=== PATIENT | female | born 1930 | race Asian ===

== ENCOUNTER 2018-01-20 14:01 | Inpatient (IN) | payer MEDICARE ==
[~2018-01-20] VITALS: Ht 142.2 cm; Wt 38.6 kg
[~2018-01-20 14:01] MED LIST: ASPI-515 PO; GINK30CA2 PO; LEVO75TA5 PO; LISI-167 PO; OMEP-110 PO; POTA8TAB PO
[2018-01-20] MEDS ORDERED: SODIUM CHLORIDE FLUSH 10ML SYR IVF ONE (14:30)
[2018-01-20] MEDS ORDERED: LISI-167 PO (14:45)
[2018-01-20] MEDS ORDERED: POTA8TAB PO (14:46)
[2018-01-20] MEDS ORDERED: NITR100C56 PO (14:48)
[2018-01-20] MEDS ORDERED: LEVO25TA2 PO (14:48)
[2018-01-20 14:53] LABS: BASOPHILS % (AUTO) 0 % (0-1); EOSINOPHILS # (AUTO) 0.18 x10^3/uL (0-0.4); EOSINOPHILS % (AUTO) 1 % (1-7); LYMPHOCYTES # (AUTO) 0.34 x10^3/uL (1-3.4); LYMPHOCYTES % (AUTO) 3 % (22-44); MD NO; MEAN CORPUSCULAR HEMOGLOBIN 30.6 pg (27.0-34.8); MEAN CORPUSCULAR HGB CONC 33.2 g/dL (32.4-35.8); MEAN CORPUSCULAR VOLUME 92.1 fL (80-100); MEAN PLATELET VOLUME 8.3 fL (7.4-10.4); MONOCYTES # (AUTO) 0.47 x10^3/uL (0.2-0.8); MONOCYTES % (AUTO) 4 % (2-9); NEUTROPHILS # (AUTO) 12.34 x10^3/uL (1.8-6.8); NEUTROPHILS % (AUTO) 93 % (42-75); PLATELET COUNT 293 x10^3/uL (130-400); RED BLOOD COUNT 4.74 x10^6/uL (3.82-5.3); RED CELL DISTRIBUTION WIDTH 14.8 % (9.6-15.2)
[2018-01-20] MEDS ORDERED: CEFTRIAXONE PMX 1GM/50ML 50 ML IV ONE (15:00)
[2018-01-20 15:01] LABS: ALANINE AMINOTRANSFERASE 16 U/L (12-78); ALBUMIN 3.1 g/dL (3.4-5.0); ANION GAP 6 mmol/L (5-15); CALCIUM 8.3 mg/dL (8.5-10.1); CHLORIDE 106 mmol/L (98-107); CREATININE 0.92 mg/dL (0.55-1.02)
[2018-01-20 15:05] LABS: ALKALINE PHOSPHATASE 71 U/L (45-117); BILIRUBIN,TOTAL 0.7 mg/dL (0.2-1.0); TOTAL PROTEIN 6.2 g/dL (6.4-8.2); TROPONIN I < 0.015 ng/mL (0.000-0.045)
[2018-01-20] MEDS ORDERED: OMNIPAQUE 350 MG/ML, 75ML BOTTLE ONE (15:23)
[2018-01-20 15:35] LABS: THYROID STIMULATING HORMONE < 0.005 mIU/L (0.358-3.740)
[2018-01-20] MEDS ORDERED: DIPHENHYDRAMINE 50 MG/ML, 1ML ONE (15:54)
[2018-01-20] MEDS ORDERED: DIPHENHYDRAMINE 50 MG/ML, 1ML IVPush ONE (16:00)
[2018-01-20] MEDS ORDERED: CEFTRIAXONE PMX 1GM/50ML 50 ML ONE (16:07)
[2018-01-20] MEDS ORDERED: ONDANSETRON 2MG/ML, 2ML IVPush PRN (17:00)
[2018-01-20] MEDS ORDERED: ACETAMINOPHEN 325 MG TABLET PO PRN (17:00)
[2018-01-20 17:42] LABS: MICROSCOPIC NOT IND
[2018-01-20 17:47] LABS: CULTURE INDICATED? ORDERED BY PHYSICIAN
[2018-01-20] MEDS: OMEPRAZOLE 20 MG CAPSULE.DR PO SCH (18:12)
[2018-01-20 18:19] VITALS: BP 143/83
[2018-01-20] MEDS: CARVEDILOL 6.25 MG TABLET PO SCH (19:11)
[2018-01-20] MEDS: HEPARIN 5,000 UNITS/ML, 1ML SQ SCH (19:11)
[2018-01-20] MEDS ORDERED: TEMAZEPAM 15 MG CAPSULE PO PRN (19:30)
[2018-01-20 19:34] VITALS: BP 131/82
[2018-01-20] MEDS: POTASSIUM CHLORIDE 8 MEQ TABLET.ER PO SCH (21:21)
[2018-01-20] MEDS: LACTOBACILLUS CHEW TABLET PO SCH (21:21)
[2018-01-20] MEDS: TEMAZEPAM 15 MG CAPSULE PO PRN (21:22)
[2018-01-21] VITALS (8 sets, daily range): BP systolic 95–154; BP diastolic 57–83
[2018-01-21 05:08] LABS: BASOPHILS # (AUTO) 0.01 x10^3/uL (0-0.1); BASOPHILS % (AUTO) 0 % (0-1); EOSINOPHILS # (AUTO) 0.34 x10^3/uL (0-0.4); EOSINOPHILS % (AUTO) 5 % (1-7); LYMPHOCYTES # (AUTO) 0.78 x10^3/uL (1-3.4); LYMPHOCYTES % (AUTO) 11 % (22-44); MD NO; MEAN CORPUSCULAR HEMOGLOBIN 30.4 pg (27.0-34.8); MEAN CORPUSCULAR HGB CONC 33.1 g/dL (32.4-35.8); MEAN PLATELET VOLUME 8.3 fL (7.4-10.4); MONOCYTES # (AUTO) 0.52 x10^3/uL (0.2-0.8); MONOCYTES % (AUTO) 8 % (2-9); NEUTROPHILS # (AUTO) 5.26 x10^3/uL (1.8-6.8); NEUTROPHILS % (AUTO) 76 % (42-75); PLATELET COUNT 245 x10^3/uL (130-400); RED BLOOD COUNT 4.07 x10^6/uL (3.82-5.3); RED CELL DISTRIBUTION WIDTH 14.9 % (9.6-15.2)
[2018-01-21 05:12] LABS: ANION GAP 9 mmol/L (5-15); CALCIUM 7.9 mg/dL (8.5-10.1); CHLORIDE 108 mmol/L (98-107); CREATININE 1.19 mg/dL (0.55-1.02)
[2018-01-21] MEDS: HEPARIN 5,000 UNITS/ML, 1ML SQ SCH ×2 (05:34→17:00)
[2018-01-21] MEDS: LEVOTHYROXINE 75 MCG TABLET PO SCH (05:34)
[2018-01-21] MEDS: CARVEDILOL 6.25 MG TABLET PO SCH ×2 (05:35→17:15)
[2018-01-21] MEDS ORDERED: SODIUM CHLORIDE 0.9% 1,000 ML IV SCH (07:30)
[2018-01-21] MEDS: LACTOBACILLUS CHEW TABLET PO SCH ×3 (08:16→20:10)
[2018-01-21] MEDS: POTASSIUM CHLORIDE 8 MEQ TABLET.ER PO SCH ×2 (08:16→20:10)
[2018-01-21] MEDS: LISINOPRIL 5 MG TABLET PO SCH ×3 (08:16→13:51)
[2018-01-21] MEDS: OMEPRAZOLE 20 MG CAPSULE.DR PO SCH ×2 (08:16→17:16)
[2018-01-21] MEDS ORDERED: CARV6.2512 PO (15:55)
[2018-01-21] MEDS ORDERED: CEFD300C37 PO (16:03)
[2018-01-21] MEDS: CEFTRIAXONE 1,000 MG in SODIUM CHLORIDE 0.9% 50 ML IV SCH (17:16)
[2018-01-21] MEDS ORDERED: LISINOPRIL 5 MG TABLET PO ONE (17:30)
[2018-01-21] MEDS: TEMAZEPAM 15 MG CAPSULE PO PRN (23:34)
[2018-01-22] VITALS (10 sets, daily range): BP systolic 98–184; BP diastolic 56–90
[2018-01-22] MEDS: LEVOTHYROXINE 75 MCG TABLET PO SCH (05:31)
[2018-01-22] MEDS: CARVEDILOL 6.25 MG TABLET PO SCH (05:31)
[2018-01-22] MEDS: HEPARIN 5,000 UNITS/ML, 1ML SQ SCH ×2 (05:32→18:00)
[2018-01-22] MEDS ORDERED: CARVEDILOL 6.25 MG TABLET PO ONE (08:00)
[2018-01-22] MEDS: LACTOBACILLUS CHEW TABLET PO SCH ×3 (08:49→20:16)
[2018-01-22] MEDS: POTASSIUM CHLORIDE 8 MEQ TABLET.ER PO SCH ×2 (08:49→20:15)
[2018-01-22] MEDS: OMEPRAZOLE 20 MG CAPSULE.DR PO SCH ×2 (08:50→17:59)
[2018-01-22] MEDS: LISINOPRIL 20 MG TABLET PO SCH ×2 (08:55→20:17)
[2018-01-22] MEDS ORDERED: hydrALAzine 20 MG/ML, 1ML IV ONE (14:00)
[2018-01-22] MEDS ORDERED: hydrALAzine 20 MG/ML, 1ML IV PRN (14:30)
[2018-01-22] MEDS: CEFTRIAXONE 1,000 MG in SODIUM CHLORIDE 0.9% 50 ML IV SCH (18:00)
[2018-01-22] MEDS: CARVEDILOL 12.5 MG TABLET PO SCH (18:00)
[2018-01-22] MEDS: TEMAZEPAM 15 MG CAPSULE PO PRN (20:16)
[2018-01-23 00:13] VITALS: BP 118/68
[2018-01-23 03:07] VITALS: BP 157/80
[2018-01-23 05:32] LABS: BASOPHILS # (AUTO) 0.02 x10^3/uL (0-0.1); BASOPHILS % (AUTO) 0 % (0-1); EOSINOPHILS # (AUTO) 0.33 x10^3/uL (0-0.4); EOSINOPHILS % (AUTO) 6 % (1-7); LYMPHOCYTES # (AUTO) 1.74 x10^3/uL (1-3.4); LYMPHOCYTES % (AUTO) 29 % (22-44); MD NO; MEAN CORPUSCULAR HEMOGLOBIN 30.6 pg (27.0-34.8); MEAN CORPUSCULAR HGB CONC 33.2 g/dL (32.4-35.8); MEAN CORPUSCULAR VOLUME 92.3 fL (80-100); MEAN PLATELET VOLUME 8.5 fL (7.4-10.4); MONOCYTES # (AUTO) 0.66 x10^3/uL (0.2-0.8); MONOCYTES % (AUTO) 11 % (2-9); NEUTROPHILS # (AUTO) 3.32 x10^3/uL (1.8-6.8); NEUTROPHILS % (AUTO) 55 % (42-75); PLATELET COUNT 290 x10^3/uL (130-400); RED BLOOD COUNT 3.97 x10^6/uL (3.82-5.3); RED CELL DISTRIBUTION WIDTH 14.9 % (9.6-15.2)
[2018-01-23 05:35] LABS: CHLORIDE 109 mmol/L (98-107)
[2018-01-23 05:43] LABS: ANION GAP 9 mmol/L (5-15); CALCIUM 8.2 mg/dL (8.5-10.1); CREATININE 1.02 mg/dL (0.55-1.02)
[2018-01-23 05:54] VITALS: BP 166/84
[2018-01-23] MEDS: HEPARIN 5,000 UNITS/ML, 1ML SQ SCH (05:57)
[2018-01-23] MEDS: LEVOTHYROXINE 75 MCG TABLET PO SCH (05:58)
[2018-01-23] MEDS: CARVEDILOL 12.5 MG TABLET PO SCH (05:58)
[2018-01-23] MEDS ORDERED: CEFD300C37 PO (07:14)
[2018-01-23] MEDS ORDERED: LISI-167 PO (07:14)
[2018-01-23] MEDS ORDERED: CARV6.2512 PO (07:14)
[2018-01-23] MEDS: OMEPRAZOLE 20 MG CAPSULE.DR PO SCH (07:55)
[2018-01-23 08:33] VITALS: BP 153/83
[2018-01-23] MEDS: LISINOPRIL 20 MG TABLET PO SCH (09:07)
[2018-01-23] MEDS: LACTOBACILLUS CHEW TABLET PO SCH (09:07)
[2018-01-23] MEDS: POTASSIUM CHLORIDE 8 MEQ TABLET.ER PO SCH (09:07)
[2018-01-23 09:26] VITALS: BP 167/82
== END 2018-01-23 10:29 | disposition home or self-care (01) | DRG 291 ==
LOC: ED 16:09 → EDIP 16:10 → ED 16:13 → 4NOR 17:56 → 3NE 18:02
PROVIDERS: ADMIT Hospitalist; ATTEND Hospitalist
DX: I11.0 Hypertensive heart disease with heart failure (principal); I71.01 Dissection of thoracic aorta; N17.9 Acute kidney failure, unspecified; J98.11 Atelectasis; N39.0 Urinary tract infection, site not specified; R65.10 Systemic inflammatory response syndrome (SIRS) of non-infectious origin without acute organ dysfunction; I50.33 Acute on chronic diastolic (congestive) heart failure; I10 Essential (primary) hypertension; F17.210 Nicotine dependence, cigarettes, uncomplicated; Z85.3 Personal history of malignant neoplasm of breast; E03.9 Hypothyroidism, unspecified; G47.00 Insomnia, unspecified; Z80.9 Family history of malignant neoplasm, unspecified
CPT/HCPCS: 36415; 71045; 71260; 80048; 80053; 81003; 83605; 83880; 84443; 84484; 85025; 87040; 87086; 93005; 96374; 96375; 99285; J0696; J1644; Q9967; J0360; J1200; J7030

== ENCOUNTER 2018-01-23 14:48 | Inpatient (IN) | payer MEDICARE ==
[~2018-01-23] VITALS: Ht 142.2 cm; Wt 34.1 kg
[~2018-01-23 14:48] MED LIST changes: +CARV6.2512 PO; +CEFD300C37 PO; +LEVO25TA2 PO; +NITR100C56 PO
[2018-01-23 15:34] LABS: BASOPHILS # (AUTO) 0.02 x10^3/uL (0-0.1); BASOPHILS % (AUTO) 0 % (0-1); EOSINOPHILS # (AUTO) 0.39 x10^3/uL (0-0.4); EOSINOPHILS % (AUTO) 6 % (1-7); LYMPHOCYTES # (AUTO) 1.63 x10^3/uL (1-3.4); LYMPHOCYTES % (AUTO) 24 % (22-44); MD NO; MEAN CORPUSCULAR HEMOGLOBIN 30.7 pg (27.0-34.8); MEAN CORPUSCULAR HGB CONC 33.6 g/dL (32.4-35.8); MEAN CORPUSCULAR VOLUME 91.3 fL (80-100); MONOCYTES # (AUTO) 0.44 x10^3/uL (0.2-0.8); MONOCYTES % (AUTO) 6 % (2-9); NEUTROPHILS % (AUTO) 64 % (42-75); PLATELET COUNT 323 x10^3/uL (130-400); RED BLOOD COUNT 4.16 x10^6/uL (3.82-5.3); RED CELL DISTRIBUTION WIDTH 14.4 % (9.6-15.2)
[2018-01-23 15:42] LABS: ANION GAP 8 mmol/L (5-15); CALCIUM 8.7 mg/dL (8.5-10.1); CHLORIDE 108 mmol/L (98-107); CREATININE 0.78 mg/dL (0.55-1.02)
[2018-01-23] MEDS ORDERED: ONDANSETRON 2MG/ML, 2ML IVPush PRN (17:30)
[2018-01-23] MEDS ORDERED: AMLODIPINE 5 MG TABLET PO ONE (17:30)
[2018-01-23] MEDS ORDERED: hydrALAzine 20 MG/ML, 1ML IVPush PRN (17:30)
[2018-01-23] MEDS ORDERED: ENALAPRILAT 1.25 MG/ML, 2ML IVPush PRN (17:30)
[2018-01-23] MEDS ORDERED: CARVEDILOL 12.5 MG TABLET PO SCH (18:00)
[2018-01-23 20:05] VITALS: BP 129/69
[2018-01-23] MEDS: OMEPRAZOLE 20 MG CAPSULE.DR PO SCH (20:39)
[2018-01-23] MEDS: CEFDINIR 300 MG CAPSULE PO SCH (20:39)
[2018-01-23] MEDS: POTASSIUM CHLORIDE 8 MEQ TABLET.ER PO SCH (20:39)
[2018-01-23] MEDS: LISINOPRIL 10 MG TABLET PO SCH (20:39)
[2018-01-23] MEDS: HEPARIN 5,000 UNITS/ML, 1ML SQ SCH (20:40)
[2018-01-24] VITALS (8 sets, daily range): BP systolic 85–165; BP diastolic 52–82
[2018-01-24] MEDS: TEMAZEPAM 15 MG CAPSULE PO PRN ×2 (00:35→22:44)
[2018-01-24] MEDS: HEPARIN 5,000 UNITS/ML, 1ML SQ SCH ×3 (04:48→22:03)
[2018-01-24 05:40] LABS: BASOPHILS # (AUTO) 0.01 x10^3/uL (0-0.1); BASOPHILS % (AUTO) 0 % (0-1); EOSINOPHILS # (AUTO) 0.49 x10^3/uL (0-0.4); EOSINOPHILS % (AUTO) 7 % (1-7); LYMPHOCYTES # (AUTO) 2.37 x10^3/uL (1-3.4); LYMPHOCYTES % (AUTO) 33 % (22-44); MD NO; MEAN CORPUSCULAR HEMOGLOBIN 30.8 pg (27.0-34.8); MEAN CORPUSCULAR HGB CONC 33.6 g/dL (32.4-35.8); MEAN CORPUSCULAR VOLUME 91.5 fL (80-100); MEAN PLATELET VOLUME 8.4 fL (7.4-10.4); MONOCYTES # (AUTO) 0.59 x10^3/uL (0.2-0.8); MONOCYTES % (AUTO) 8 % (2-9); NEUTROPHILS # (AUTO) 3.83 x10^3/uL (1.8-6.8); NEUTROPHILS % (AUTO) 53 % (42-75); PLATELET COUNT 281 x10^3/uL (130-400); RED BLOOD COUNT 3.82 x10^6/uL (3.82-5.3); RED CELL DISTRIBUTION WIDTH 14.5 % (9.6-15.2)
[2018-01-24 05:54] LABS: ANION GAP 8 mmol/L (5-15); CHLORIDE 108 mmol/L (98-107)
[2018-01-24 05:57] LABS: CALCIUM 8.5 mg/dL (8.5-10.1); CREATININE 0.81 mg/dL (0.55-1.02)
[2018-01-24] MEDS: CARVEDILOL 12.5 MG TABLET PO SCH ×2 (05:58→18:00)
[2018-01-24] MEDS: LEVOTHYROXINE 75 MCG TABLET PO SCH (05:59)
[2018-01-24] MEDS ORDERED: AMLODIPINE 5 MG TABLET PO SCH (09:00)
[2018-01-24] MEDS: OMEPRAZOLE 20 MG CAPSULE.DR PO SCH ×2 (09:28→21:00)
[2018-01-24] MEDS: POTASSIUM CHLORIDE 8 MEQ TABLET.ER PO SCH ×2 (09:28→21:00)
[2018-01-24] MEDS: LISINOPRIL 10 MG TABLET PO SCH ×2 (09:29→14:51)
[2018-01-24] MEDS ORDERED: hydrALAzine 20 MG/ML, 1ML IVPush PRN (13:30)
[2018-01-24] MEDS ORDERED: AMLODIPINE 5 MG TABLET PO ONE (13:30)
[2018-01-24] MEDS: CEFDINIR 300 MG CAPSULE PO SCH ×2 (13:42→23:43)
[2018-01-24] MEDS ORDERED: ENALAPRILAT 1.25 MG/ML, 2ML IVPush PRN (17:30)
[2018-01-25 02:13] VITALS: BP 113/59
[2018-01-25 05:29] VITALS: BP 124/75
[2018-01-25] MEDS: LEVOTHYROXINE 75 MCG TABLET PO SCH (05:38)
[2018-01-25] MEDS: HEPARIN 5,000 UNITS/ML, 1ML SQ SCH (05:38)
[2018-01-25 06:43] VITALS: BP 122/65
[2018-01-25] MEDS ORDERED: AMLO5TAB2 PO (08:06)
[2018-01-25] MEDS: CEFDINIR 300 MG CAPSULE PO SCH (08:41)
[2018-01-25] MEDS: CARVEDILOL 12.5 MG TABLET PO SCH (08:42)
[2018-01-25] MEDS: LISINOPRIL 10 MG TABLET PO SCH (08:42)
[2018-01-25] MEDS: OMEPRAZOLE 20 MG CAPSULE.DR PO SCH (08:42)
[2018-01-25] MEDS ORDERED: LISINOPRIL 10 MG TABLET PO SCH (09:00)
[2018-01-25] MEDS ORDERED: AMLODIPINE 5 MG TABLET PO SCH (09:00)
== END 2018-01-25 10:34 | disposition home or self-care (01) | DRG 304 ==
LOC: ED 16:52 → EDIP 16:53 → ED 17:09 → 5SO 18:13
PROVIDERS: ADMIT Hospitalist; ATTEND Hospitalist
DX: I16.0 Hypertensive urgency (principal); I71.01 Dissection of thoracic aorta; N17.9 Acute kidney failure, unspecified; J90 Pleural effusion, not elsewhere classified; I10 Essential (primary) hypertension; I71.2 Thoracic aortic aneurysm, without rupture; G47.00 Insomnia, unspecified; R00.1 Bradycardia, unspecified; N14.1 Nephropathy induced by other drugs, medicaments and biological substances; T50.8X5A Adverse effect of diagnostic agents, initial encounter; E03.9 Hypothyroidism, unspecified; Z79.899 Other long term (current) drug therapy; Z85.3 Personal history of malignant neoplasm of breast; Y92.89 Other specified places as the place of occurrence of the external cause
CPT/HCPCS: 36415; 70450; 80048; 85025; 93005; 99285; J1644